=== PATIENT | female | born 1960 | race Caucasian/White ===

== ENCOUNTER → 2016-12-31 | Outpatient (CLI) | payer BC | END | disposition home or self-care (01) | LOC: LAB.O 07:49 | PROVIDERS: ATTEND Nurse Practitioner Family | DX: N39.0 Urinary tract infection, site not specified (principal) ==

== ENCOUNTER → 2017-02-25 | Outpatient (CLI) | payer BC ==
--- NOTE | 2017-02-27 14:09 | CT ---
EXAM DESCRIPTION: Abdoment/Pelvis w/o Contrast CLINICAL HISTORY: RENAL COLIC COMPARISON: None Available TECHNIQUE: CT of the abdomen and Pelvis was performed without IV contrast. This exam was performed according to our departmental dose-optimization program, which includes automated exposure control, adjustment of the mA and/or kV according to patient size and/or use of iterative reconstruction technique. FINDINGS: There are small nonobstructing bilateral renal calculi. No ureteral calculus, hydronephrosis or perinephric inflammation. The bladder is unremarkable. The uterus and ovaries are unremarkable for patient's age. No colonic diverticulosis, colonic wall thickening or pericolonic inflammation. No adenopathy, ascites or pneumoperitoneum. No abdominal aortic aneurysm. No dilated small bowel loops. No calcified gallstone. The liver, spleen, pancreas and adrenals are unremarkable for noncontrast technique. No concerning bone lesion. IMPRESSION: Bilateral nephrolithiasis, but no ureteral calculus, hydronephrosis or other acute urinary tract abnormality. Electronically signed by: Kyle Harrison MD 02/27/2017 2:08 PM CDT Workstation: [id number]
== END | disposition home or self-care (01) ==
LOC: CT 08:35
PROVIDERS: ATTEND Family Medicine
DX: N20.0 Calculus of kidney (principal)

== ENCOUNTER → 2018-02-27 | Outpatient (CLI) | payer OTHER ==
--- NOTE | 2018-02-27 14:21 | RAD ---
EXAM DESCRIPTION: KUB CLINICAL HISTORY: CALCULUS OF KIDNEY COMPARISON: CT the abdomen dated 25 February 2017 TECHNIQUE: KUB FINDINGS: The abdominal bowel gas pattern is normal. No evidence of free intraperitoneal air is seen. No organomegaly is detected. A cluster stones observed in the lower pole the patient's left kidney. The largest stone measures 4.3 mm in diameter. No stones are seen along the course of the ureters. IMPRESSION: Cluster of stones observed in the lower pole the left kidney. The larger stone measures 4.3 mm in diameter. Electronically signed by: Brenden Sher MD 02/27/2018 2:20 PM CDT
== END ==
LOC: RAD 12:32
PROVIDERS: ATTEND Urology
DX: N20.0 Calculus of kidney (principal)

== ENCOUNTER → 2018-10-19 | Outpatient (CLI) | payer BC | LOC: GMATM 16:47 | PROVIDERS: ATTEND Nurse Practitioner Family | DX: R53.83 Other fatigue (principal) ==

== ENCOUNTER → 2020-08-21 | Outpatient (CLI) | payer BC ==
--- NOTE | 2020-08-22 11:48 | MAM ---
EXAM DESCRIPTION: 3D Screening BILATERAL : Digital Mammography. CLINICAL HISTORY: 60 years Female SCREENING . No complaints. Family history of breast cancer. Menarche age 13. Childbirth age 21. Menopause age unknown. No HRT. Lifetime risk of developing breast cancer (Tyrer-Cuzick model)(%): 5.8. COMPARISON: Baseline study at this facility. No prior reports available. TECHNIQUE: Bilateral CC and MLO projection full-field images, digital tomosynthesis mammographic technique. Bilateral digital 2-D full-field MLO images. CAD available for 2-D images. FINDINGS: The breast parenchymal density pattern is: Scattered areas of fibroglandular density. Axillary nodes. Bilateral scattered solitary microcalcifications and coarse calcifications, No skin thickening or nipple retraction No focal, stellate mass or density, focal asymmetry , and no suspicious microcalcifications bilaterally. IMPRESSION: Benign exam. BIRAD CATEGORY: 2 BENIGN FINDINGS. RECOMMENDATIONS: FOLLOW UP: Routine digital bilateral mammographic screening, one year interval from August 2020. Written communication explaining the IMPRESSION and follow-up, will be mailed to the patient and referring health care provider. According to the [employer], yearly mammograms are recommended starting at age 40 and continuing as long as a woman is in good health. Any breast change noted on a breast self-exam should be reported promptly to the patient's healthcare provider. Breast MRI is recommended for women with an approximately 20-25% or greater lifetime risk of breast cancer, including women with a strong family history of breast or ovarian cancer and women who have been treated for Hodgkin's disease. A negative mammographic report should not delay tissue diagnosis in patients with significant clinical history or physical findings. Extremely dense breast tissue limits the sensitivity of digital mammography. Electronically signed by: Federico Zamora MD 08/22/2020 11:46 AM [facility]
== END ==
LOC: MAMMO 09:58
PROVIDERS: ATTEND Family Medicine
DX: Z12.31 Encounter for screening mammogram for malignant neoplasm of breast (principal)